=== PATIENT | female | born 1995 | race African-American/Black ===

== ENCOUNTER 2017-10-08 10:57 | Emergency (ER) | payer OTHER ==
[2017-10-08 11:03] VITALS: BP 108/61; PULSE 81; TEMP 98; BMI 31.8
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
== END 2017-10-08 11:59 | disposition home or self-care (01) ==
LOC: JERFT 10:57
DX: S80.01XA Contusion of right knee, initial encounter (principal); S80.02XA Contusion of left knee, initial encounter; V43.52XA Car driver injured in collision with other type car in traffic accident, initial encounter; Y93.89 Activity, other specified; Y92.410 Unspecified street and highway as the place of occurrence of the external cause
CPT/HCPCS: 73562-TC-LT-FY; 73562-TC-RT-FY; 99281-25

== ENCOUNTER 2018-07-27 20:17 | Emergency (ER) | payer OTHER ==
[2018-07-27] MEDS ORDERED: diphenhydrAMINE HCL 50 MG CAPSULE PO ONE (20:31)
--- NOTE | 2018-07-27 20:31 | PDOC ---
[facility] Evaluation Time Seen by Provider: 07/27/18 20:29 Medical Evaluation: Allergies Allergy/AdvReac Type Severity Reaction Status Date / Time No Known Allergies Allergy Verified 10/08/17 11:03 07/27/18 20:29 I have performed a brief in-person evaluation of this patient. The patient presents with a chief complaint of: itching to whole body since this afternoon, denies new possible allergens including soaps, lotions, perfumes , detergents, foods. reports using OTC anti itch cream Pertinent physical exam findings: diffuse rash I have ordered the following: benadryl The patient will proceed to the ED for further evaluation.
[2018-07-27 20:32] VITALS: BP 119/74; PULSE 86; TEMP 98.2; BMI 36.5
[2018-07-27] MEDS ORDERED: predniSONE 20 MG TABLET (UD) PO ONE (21:07)
--- NOTE | 2018-07-27 21:13 | PDOC ---
History of Present Illness - General Chief Complaint: Rash Stated Complaint: ALLERGIC REACTION Time Seen by Provider: 07/27/18 20:29 History Source: Patient Exam Limitations: No Limitations - History of Present Illness Initial Comments: 07/27/18 21:09 HISTORY OF PRESENT ILLNESS: 23-year-old woman denies medical history of presents emergency department for evaluation of rash to arms and thighs starting today. Patient denies any change in cosmetics, lotions, soaps, shampoos , cleaning products, fabric softeners or laundry detergents. Patient reports started taking apple cider pills approximately 2 days ago. She denies any shortness of breath or throat itching. No recent travel or sick contacts. PAST MEDICAL HISTORY: Denies past medical history SURGICAL HISTORY: Denies ALLERGIES: No known drug allergies REVIEW OF SYSTEMS General/Constitutional: Denies fever or chills. Denies weakness, weight change. HEENT: Denies change in vision. Denies ear pain or discharge. Denies sore throat. Cardiovascular: Denies chest pain or shortness of breath. Respiratory: Denies cough, wheezing, or hemoptysis. Gastrointestinal: Denies nausea, vomiting, diarrhea or constipation. Denies rectal bleeding. Genitourinary: Denies dysuria, frequency, or change in urination. Musculoskeletal: Denies joint or muscle swelling or pain. Denies neck or back pain. Skin and breasts: see HPI Neurologic: Denies headache, vertigo, loss of consciousness, or loss of sensation. Psychiatric: Denies depression or anxiety. Endocrine: Denies increased thirst. Denies abnormal weight change. Hematologic/Lymphatic: Denies anemia, easy bleeding, or history of blood clots. Allergic/Immunologic: Denies hives or skin allergy. Denies latex allergy. PHYSICAL EXAM General Appearance: Well-appearing, appropriately dressed. No apparent distress , no intoxication. HEENT: EOMI, PERRLA, normal ENT inspection, normal voice, TMs normal, pharynx normal. No conjunctival pallor. No photophobia, scleral icterus. Neck: Supple. Trachea midline. No tenderness, rigidity, carotid bruit, stridor , lymphadenopathy, or thyromegaly. Respiratory/Chest: Lungs CTAB. No shortness of breath, chest tenderness, respiratory distress, accessory muscle use. No crackles, rales, rhonchi, stridor , wheezing, dullness Cardiovascular: RRR. S1, S2. No JVD, murmur, bradycardia, tachycardia. Gastrointestinal/Abdominal: Normal bowel sounds. Abdomen soft, non-distended. No tenderness or rebound tenderness. No organomegaly, pulsatile mass, guarding, hernia, hepatomegaly, splenomegaly. Musculoskeletal/Extremities: Normal inspection. FROM of all extremities, normal capillary refill. Pelvis Stable. No CVA tenderness. No tenderness to extremities, pedal edema, swelling, erythema or deformity. Integumentary: Flat pink pruritic rash presents to the lower aspect of bilateral forearms and the medial aspect of bilateral thighs. 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 Fully oriented, alert. Appropriate mood/affect. Motor strength 5/5. No appreciable EOM palsy, facial droop or sensory deficit. 07/27/18 21:11 Past History - Past Medical History Allergies/Adverse Reactions: Allergies Allergy/AdvReac Type Severity Reaction Status Date / Time No Known Allergies Allergy Verified 07/27/18 20:44 Home Medications: Ambulatory Orders predniSONE [Deltasone -] 40 mg PO DAILY #4 tablet 07/27/18 COPD: No - Suicide/Smoking/Psychosocial Hx Smoking History: Unknown if ever smoked Have you smoked in the past 12 months: No Information on smoking cessation initiated: No Hx Alcohol Use: No Drug/Substance Use Hx: No *Physical Exam - Vital Signs Last Vital Signs Temp Pulse Resp BP Pulse Ox 98.2 F 86 16 119/74 98 07/27/18 20:30 07/27/18 20:30 07/27/18 20:30 07/27/18 20:30 07/27/18 20:30 ED Treatment Course - Medications Given in the ED: ED Medications Discontinued Medications Generic Name Dose Route Start Last Admin Trade Name Freq PRN Reason Stop Dose Admin Diphenhydramine HCl 50 mg 07/27/18 20:31 07/27/18 20:58 Benadryl - PO 07/27/18 20:32 50 mg ONCE ONE Administration Medical Decision Making - Medical Decision Making 07/27/18 21:12 A/P: 23-year-old woman with rash to bilateral arms and legs Flat pain erythematous pruritic rash present to fall or aspect of bilateral forearms and medial aspect of bilateral thighs Oropharynx is within normal limits No stridor auscultated Lungs clear to auscultation bilaterally Patient received Benadryl from [facility] medical evaluation Prednisone 40 mg orally now Discharge home with prescription for prednisone and referral for dermatology evaluation. Patient has been instructed to stop taking apple cider vinegar pills was instructed to drink apple cider vinegar instead. *DC/Admit/Observation/Transfer Diagnosis at time of Disposition: Dermatitis - Discharge Dispostion Disposition: HOME Condition at time of disposition: Stable Decision to Admit order: No - Prescriptions Prescriptions: predniSONE [Deltasone -] 40 mg PO DAILY #4 tablet - Referrals Referrals: Griselda Castillo MD [Staff Physician] - - Patient Instructions Additional Instructions: Rest, keep cool and dry- avoid strenuous activity or hot /humid environments Less hot showers, no abrasive soaps May use heavy creams like Eucerin or Cetaphil to keep skin moist May apply Aveeno, calamine lotion, [id number] hydrocortisone creams as needed for symptoms May use Benadryl at night for antihistamine, Zyrtec/ [place] or Claritin for daytime antihistamine use to help with itching May use [id number] hydrocortisone cream on all areas except face Prednisone 40mg daily for 4 days starting on 07/28 Try to identify cause for rash and avoid exposures Followup with PMD in one week if no resolution Make appointment with envelope folder for evaluation when possible - Post Discharge Activity
== END 2018-07-27 21:38 | disposition home or self-care (01) ==
LOC: JERFT 20:17
DX: L30.9 Dermatitis, unspecified (principal)
CPT/HCPCS: 99281-25

== ENCOUNTER 2019-02-25 08:10 | Emergency (ER) | payer OTHER ==
[2019-02-25 08:17] VITALS: BP 136/85; PULSE 76; TEMP 97.8; BMI 31.2
--- NOTE | 2019-02-25 08:59 | PDOC ---
History of Present Illness - General Chief Complaint: Pain Stated Complaint: RT WRIST PAIN Time Seen by Provider: 02/25/19 08:52 History Source: Patient Exam Limitations: No Limitations - History of Present Illness Initial Comments: 02/25/19 08:52 23 yo F w/ no sig PMHx comes in c/o R wrist pain for the past 2-3 months. She denies any trauma at time of onset of symptoms. Pt is R hand dominant. 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 Denies exercise. Pain has been getting worse today, hence the ED visit, no numbness/tingling, no weakness, no pain anywhere else. Pt usually takes 400 mg ibuprofen 1-2 times a day but it does not help. She went to her doctor on [address], last month, had an MRI done on February 05 but has not gotten the results yet. 02/25/19 08:55 Past History - Past Medical History Allergies/Adverse Reactions: Allergies Allergy/AdvReac Type Severity Reaction Status Date / Time No Known Allergies Allergy Verified 02/25/19 08:14 Home Medications: Ambulatory Orders Ibuprofen 600 mg PO Q6H 3 Days #15 tablet 02/25/19 COPD: No - Reproductive History Is Patient Now?: No - Immunization History Immunization Up to Date: Yes - Psycho Social/Smoking Cessation Hx Smoking History: Never smoked Have you smoked in the past 12 months: No Information on smoking cessation initiated: No Hx Alcohol Use: No Drug/Substance Use Hx: No Review of Systems - Review of Systems Able to Perform ROS?: Yes Constitutional: No: Chills, Fever, Malaise, Night Sweats HEENTM: No: Eye Pain, Recent change in vision, Throat Pain Respiratory: No: Cough, Shortness of Breath Cardiac (ROS): No: Chest Pain, Palpitations, Chest Tightness ABD/GI: No: Diarrhea, Nausea, Vomiting, Abdominal cramping : No: Dysuria, Hematuria Musculoskeletal: No: Back Pain Integumentary: No: Rash Neurological: No: Headache, Numbness, Dizziness Psychiatric: No: Change in Appetite Endocrine: No: Unexplained Weight Loss *Physical Exam - Vital Signs Last Vital Signs Temp Pulse Resp BP Pulse Ox 97.8 F 76 16 136/85 100 02/25/19 08:14 02/25/19 08:14 02/25/19 08:14 02/25/19 08:14 02/25/19 08:14 - Physical Exam General Appearance: Yes: Nourished. No: Apparent Distress HEENT: positive: KAITLIN, Normal ENT Inspection, Normal Voice. negative: Pale Conjunctivae, Scleral Icterus (R), Scleral Icterus (L) Neck: positive: Supple. negative: Decreased range of motion, Tender midline Respiratory/Chest: negative: Respiratory Distress, Accessory Muscle Use Cardiovascular: positive: Regular Rate Musculoskeletal: positive: Normal Inspection. negative: Decreased Range of Motion Extremity: positive: Normal Capillary Refill, Normal Inspection, Normal Range of Motion, Tender (R wrist tenderness at tendon sheath overlying scaphoid, (+) Arlet test. FROM all fingers including thumb wiht tenderness on thumb ROM , 5/5 strength, good dining car server RUE. Good pulses, full sensory function.). negative: Pedal Edema Integumentary: positive: Normal Color, Dry. negative: Jaundice, Rash Neurologic: positive: Fully Oriented, Alert, Normal Mood/Affect Procedures - Splinting Splint Location: Right: Finger (Thumb SPica) Pre-Proc Neuro Vasc Exam: normal Hand-Made Type: orthoglass Splint Type: Yes: Thumb Spica Post-Proc Neuro Vasc Exam: normal Jae Bandage: yes, 3" Sling: No Complications: No Post splint xray: No Medical Decision Making - Medical Decision Making 02/25/19 09:25 23 yo F w/ Dequevrain tenosynovitis. MRI shows tenosynovitis, no other findings. Pt placed in a thumb spica splint. Advised to take motrin 600mg every 6hrs for 3 days, will give referral to Dr. Lema from ortho. Return for worsening/concerning symptoms. Pt verbalizes understanding and agrees with plan. Discharge - Discharge Information Problems reviewed: Yes Clinical Impression/Diagnosis: Tenosynovitis of finger Condition: Stable Disposition: HOME - Follow up/Referral Referrals: Gus Leiva [Primary Care Provider] - Ruslan Lema DO [Staff Physician] - - Patient Discharge Instructions Patient Printed Discharge Instructions: DI for Tenosynovitis Additional Instructions: Keep the splint on until you see the orthopedic doctor. Do not get it wet. Take ibuprofen as prescribed for 3 days. Return for worsening/concerning symptoms. Thank you for choosing [facility] for your emergent health care needs. - Post Discharge Activity
== END 2019-02-25 09:32 | disposition home or self-care (01) ==
LOC: JER 08:10
PROC: 2W3CX1Z Immobilization of Right Lower Arm using Splint (ICD-10-PCS; principal; 2019-02-25)
DX: M65.4 Radial styloid tenosynovitis [de Quervain] (principal)
CPT/HCPCS: 99282-25

== ENCOUNTER 2020-11-18 11:20 | Emergency (ER) | payer OTHER ==
[2020-11-18 11:32] VITALS: BP 106/66; PULSE 86; TEMP 98.4; BMI 37.0
[2020-11-18] MEDS ORDERED: KETOROLAC TROMETHAMINE 60 MG/2 ML VIAL IM ONE (11:54)
[2020-11-18] MEDS ORDERED: KETOROLAC TROMETHAMINE 60 MG/2 ML VIAL ONE (11:57)
== END 2020-11-18 12:05 | disposition home or self-care (01) ==
LOC: JERFT 11:20
PROC: 3E0233Z Introduction of Anti-inflammatory into Muscle, Percutaneous Approach (ICD-10-PCS; principal; 2020-11-18)
DX: M79.644 Pain in right finger(s) (principal)
CPT/HCPCS: 99284-25